=== PATIENT | female | born 1960 | race Caucasian/White ===

== ENCOUNTER 2019-10-16 14:03 | Observation (INO) ==
[2019-10-16 16:54] LABS: Basophils # 0.1 10*3/uL (0.0-0.2); Basophils % 0.7 % (0.0-0.8); Eosinophils % 0.1 % (0.00-10.9); Hematocrit 41.7 VOL% (35.7-47.0); Hemoglobin 13.5 GM/DL (12.0-16.0); Immature Granulocytes % 0.3 %; Immature Granulocytes Absolute 0.03 #; Lymphocytes # 1.6 10*3/uL (1.4-4.0); Lymphocytes % 15.8 % (21.3-54.2); Mean Corpuscular HGB Conc 32.4 GM/DL (32-36); Mean Corpuscular Volume 95.2 FL (87-102); Mean Platelet Volume 10.3 FL (9.6-12.0); Monocytes % 5.6 % (1.7-12.7); Neutrophils % 77.5 % (38.7-73.9); Platelet Count 309 T/CUMM (130-400); Red Blood Count 4.38 MC/CUMM (3.8-5.5); Red Cell Distribution Width 12.2 % (9.3-17.3); White Blood Count 10.2 T/CUMM (4-12)
[2019-10-16 17:15] LABS: Apearance,Urine CLEAR (Clear); Bilirubin,Urine Negative (Negative); Blood, Urine Negative (Negative); Glucose,Urine (UA) Negative (Negative); Ketones,Urine 5 mg/dL (Negative); Nitrite,Urine Negative (Negative); Protein,Urine Negative; RBC,Urine 1 /HPF (0-4); Squamous Epithelial Cell,Urine Occasional /HPF (0-10); Urine Color Yellow (Yellow); Urine Specific Gravity 1.006 (1.001-1.035); Urine Urobilinogen < 2.0 EU/DL (0.2-1.0); WBC,Urine <1 /HPF (0-6)
[2019-10-16 17:18] LABS: Alanine Aminotransferase 22 U/L (13-56); Albumin 3.9 G/DL (3.4-5.0); Alkaline Phosphatase 48 U/L (45-117); Aspartate Amino Transferase 13 U/L (0-37); Blood Urea Nitrogen 7 MG/DL (7-18); Calcium 9.1 MG/DL (8.5-10.1); Estimated Glom Filtration Rate 67 ML/MIN; Glucose 123 MG/DL (74-106); Osmolality,Calculated 277.4 MOS/KG (273-304); Total Protein 7.9 G/DL (6.4-8.3)
[2019-10-16] MEDS ORDERED: SODIUM CHLORIDE 0.9% 1,000 ML IV STA (17:28)
[2019-10-16] MEDS ORDERED: GLUCAGON 1 MG VIAL IM PRN (18:09)
[2019-10-16] MEDS ORDERED: DEXTROSE 50% 25 GM/50 ML VIAL IV PRN (18:09)
[2019-10-16] MEDS ORDERED: busPIRone 5 MG TABLET PO PRN (19:02)
[2019-10-16 20:00] LABS: Calcium 7.9 MG/DL (8.5-10.1); Osmolality,Calculated 277.4 MOS/KG (273-304)
[2019-10-16] MEDS: ENOXAPARIN 40 MG/0.4 ML SYRINGE SUBCUT SCH (21:11)
[2019-10-16] MEDS: SODIUM CHLORIDE 0.9% 1,000 ML IV SCH (21:12)
[2019-10-17] MEDS: SODIUM CHLORIDE 0.9% 1,000 ML IV SCH ×2 (04:55→16:32)
[2019-10-17 06:04] LABS: Calcium 7.7 MG/DL (8.5-10.1); Osmolality,Calculated 280.1 MOS/KG (273-304); Thyroid Stimulating Hormone 4.19 uIU/ml (0.358-3.74)
[2019-10-17] MEDS ORDERED: POTASSIUM CHLORIDE 20 MEQ TABLET PO ONE (07:31)
[2019-10-17] MEDS: ONDANSETRON 4 MG/2 ML VIAL IV PRN (07:40)
[2019-10-17] MEDS ORDERED: PANTOPRAZOLE 40 MG TABLET PO SCH (09:00)
[2019-10-17] MEDS: THIAMINE 100 MG TABLET PO SCH (09:53)
[2019-10-17] MEDS: PYRIDOXINE 50 MG TABLET PO SCH (09:53)
[2019-10-17] MEDS: MULTIVITAMIN (BEROCCA) TABLET PO SCH (09:53)
[2019-10-17] MEDS ORDERED: ACETAMINOPHEN 325 MG TABLET PO PRN (14:46)
[2019-10-17] MEDS: ESCITALOPRAM 10 MG TABLET PO SCH (22:44)
[2019-10-17] MEDS: PANTOPRAZOLE 40 MG TABLET PO SCH (22:44)
[2019-10-17] MEDS: ENOXAPARIN 40 MG/0.4 ML SYRINGE SUBCUT SCH (22:45)
[2019-10-18] MEDS: ONDANSETRON 4 MG/2 ML VIAL IV PRN ×2 (00:55→05:50)
[2019-10-18] MEDS: SODIUM CHLORIDE 0.9% 1,000 ML IV SCH ×4 (02:45→23:50)
[2019-10-18] MEDS: PYRIDOXINE 50 MG TABLET PO SCH (08:58)
[2019-10-18] MEDS: THIAMINE 100 MG TABLET PO SCH (08:58)
[2019-10-18] MEDS: MULTIVITAMIN (BEROCCA) TABLET PO SCH (08:58)
[2019-10-18] MEDS: PANTOPRAZOLE 40 MG TABLET PO SCH (08:59)
[2019-10-18] MEDS ORDERED: PROCHLORPERAZINE 10 MG TABLET PO PRN (10:37)
[2019-10-18] MEDS ORDERED: traMADol 50 MG TABLET PO PRN (11:51)
[2019-10-18] MEDS: PANTOPRAZOLE 40 MG VIAL IV SCH (20:47)
[2019-10-19 06:18] LABS: Calcium 7.9 MG/DL (8.5-10.1)
[2019-10-19] MEDS ORDERED: LIDOCAINE 2% 5 ML VIAL ONE (09:00)
[2019-10-19] MEDS ORDERED: propofoL 200 MG/20 ML VIAL IV ONE (09:00)
[2019-10-19] MEDS: MULTIVITAMIN (BEROCCA) TABLET PO SCH (11:39)
[2019-10-19] MEDS: THIAMINE 100 MG TABLET PO SCH (11:39)
[2019-10-19] MEDS: PYRIDOXINE 50 MG TABLET PO SCH (11:39)
[2019-10-19] MEDS: PANTOPRAZOLE 40 MG VIAL IV SCH ×2 (11:39→20:32)
[2019-10-19] MEDS: SODIUM CHLORIDE 0.9% 1,000 ML IV SCH ×2 (18:33)
[2019-10-19] MEDS: ESCITALOPRAM 10 MG TABLET PO SCH (20:29)
[2019-10-20] MEDS: SODIUM CHLORIDE 0.9% 1,000 ML IV SCH (04:47)
[2019-10-20] MEDS ORDERED: PANTOPRAZOLE 40 MG TABLET PO SCH (07:00)
[2019-10-20 07:46] VITALS: BP 132/68
[2019-10-20] MEDS: THIAMINE 100 MG TABLET PO SCH (09:06)
[2019-10-20] MEDS: MULTIVITAMIN (BEROCCA) TABLET PO SCH (09:06)
[2019-10-20] MEDS: PYRIDOXINE 50 MG TABLET PO SCH (09:06)
== END 2019-10-20 09:48 | disposition home or self-care (01) ==
LOC: N.EDINP 14:03 → N.ED 14:03 → SUATTDRO 18:09 → N.TELEN 20:30
PROVIDERS: ADMIT Internal Medicine; ATTEND Family Medicine